=== PATIENT | female | born 1970 | race Caucasian/White ===

== ENCOUNTER → 2023-05-30 10:10 | Outpatient (BNVA) | payer BC, MEDICAID, SELFPAY | PROVIDERS: Visit Provider Orthopaedic Surgery | DX: Z96.82 Presence of neurostimulator; Z98.1 Arthrodesis status; M54.50 Low back pain, unspecified; G89.29 Other chronic pain | CPT/HCPCS: 72040; 72070; 72100 ==

== ENCOUNTER 2023-09-05 08:40 | Outpatient (CLI) | payer BC, MEDICAID, SELFPAY ==
--- NOTE | 2023-09-05 08:46 | CT_ITS ---
WS: [id number] CT MYELOGRAM LUMBAR SPINE HISTORY: M54.9 - Dorsalgia, unspecified TECHNIQUE: Contiguous 2.5 mm axial imaging performed from T12 through the mid sacral level. Bone and soft tissue windows reviewed. Sagittal and coronal reformats are submitted and reviewed. DLP: 1251.[address] scans at [facility] use at least one of these dose optimization techniques: automated e xposure control; mA and/or kV adjustment per patient size (includes targeted exams where dose is matc hed to clinical indication); or iterative reconstruction. COMPARISON: None available. Good contrast opacification of the subarachnoid space of the lumbar spine. Disc spaces are well-maint ained with mild desiccation at L5-S1. Osteophytic ridging around the vertebral bodies of the lumbar s pine. L1-L2: Negative. L2-L3: Very mild annular disc bulging. Shallow LEFT foraminal disc protrusion but no stenosis. L3-L4: Mild diffuse annular disc bulging without a focal protrusion. Mild facet and ligamentum flavum hypertrophy. There is mild central stenosis. L4-L5: Mild annular disc bulging with disc slightly contacting the traversing L5 nerve roots but no d isplacement. Mild facet joint arthritis. No high-grade stenosis. L5-S1: Moderate osteophytic ridging with annular disc bulging. Central disc protrusion. There is very slight disc contact on the S1 nerve roots but no displacement. Mild central and bilateral foraminal stenosis. Slightly greater osteophyte encroachment into the RIGHT foramen. SI joint screw fixation. Patient also has a dorsal column stimulator over the RIGHT lumbar region. IMPRESSION: 1. L3-4: Mild central stenosis. Mild facet arthritis. 2. L4-5: Annular disc bulging contacts the traversing L5 nerve roots with no displacement. No high-g rade stenosis. 3. L5-S1: Shallow central disc protrusion with slight disc contact on the S1 nerve roots encroaching into the subarticular recesses. Mild central and bilateral foraminal stenosis, RIGHT greater than LE FT. 4. Very shallow LEFT foraminal disc protrusion at L2-3.
--- NOTE | 2023-09-05 09:15 | IR_ITS ---
WS: [id number] LUMBAR MYELOGRAM HISTORY: M54.9 - Dorsalgia, unspecified COMPARISON: None available. FLUOROSCOPY TIME: 2min [id number] # of spot films: 7 Procedure, risks and complications were explained to the patient. Risks including bleeding, infection , headaches, allergic reaction and seizures. Consent has been obtained. With the patient in prone position the skin over the lumbar region is cleansed with ChloraPrep and an esthetized with lidocaine. 22-gauge spinal needle is inserted into the thecal sac at the appropriate level determined by fluoroscopy. Omnipaque 240; 12 ml is injected slowly under fluoroscopy with no co mplications. Needle bevel is perpendicular to the longitudinal fibers of the dura. Stylet is reinsert ed prior to removal of the needle. Patient tolerated the procedure well. Patient will proceed to CT f or further evaluation. Good opacification subarachnoid space of the lumbar spine. No high-grade stenosis is identified. Ther e is mild narrowing of the canal at L5-S1. No significant mass effect upon the cord. Postsurgical serjio dware across the SI joints. Patient also has a dorsal column stimulator. IMPRESSION: Uncomplicated lumbar myelogram. Patient to proceed to CT.
== END 2023-09-05 08:41 | disposition home or self-care (01) ==
LOC: RAD 08:41
PROVIDERS: Visit Provider Orthopaedic Surgery
DX: M54.9 Dorsalgia, unspecified (principal)
CPT/HCPCS: 62304; 72132; Q9966

== ENCOUNTER → 2023-10-01 14:50 | Outpatient (BNVA) | payer BC, MEDICAID, SELFPAY | PROVIDERS: Visit Provider Orthopaedic Surgery | DX: M54.9 Dorsalgia, unspecified (principal); M79.642 Pain in left hand; M48.062 Spinal stenosis, lumbar region with neurogenic claudication; Z79.899 Other long term (current) drug therapy | CPT/HCPCS: 36415; 80053; 81001; 85025 ==

== ENCOUNTER → 2023-10-14 12:57 | Outpatient (BNVA) | payer BC, MEDICAID, SELFPAY | PROVIDERS: Visit Provider Family Medicine | DX: Z01.818 Encounter for other preprocedural examination (principal); Z79.899 Other long term (current) drug therapy | CPT/HCPCS: 81003 ==

== ENCOUNTER → 2023-11-26 14:42 | Outpatient (BNVA) | payer BC, MEDICAID, SELFPAY | PROVIDERS: Referring Provider Orthopaedic Surgery; Visit Provider Student in an Organized Health Care Education/Training Program | DX: M79.642 Pain in left hand (principal); M65.332 Trigger finger, left middle finger | CPT/HCPCS: 73130 ==

== ENCOUNTER → 2023-12-26 11:08 | Outpatient (BNVA) | payer BC, MEDICAID, SELFPAY | PROVIDERS: Visit Provider Orthopaedic Surgery | DX: M48.062 Spinal stenosis, lumbar region with neurogenic claudication (principal) | CPT/HCPCS: 72070; 72110 ==

== ENCOUNTER 2024-01-01 08:08 | Day surgery (SDC) | payer BC, MEDICAID, SELFPAY ==
[2024-01-01] VITALS (8 sets, daily range): BP systolic 135–165; BP diastolic 76–92; PULSE 69–75; RESP 18–20; TEMP 36.3–36.4; O2SAT 96–98
[2024-01-01] MEDS: methadone 10 mg Tablet PO (09:21)
[2024-01-01] MEDS: scopolamine 1.5 Patch 1 PATCH TRANSDERMA (09:25)
--- NOTE | 2024-01-01 09:33 | P.ANESASSM_ITS ---
Pre-Anesthetic Assessment Height/Weight: Height 1.7 m Weight 2.466 kg Temp Pulse Resp BP Pulse Ox O2 Del Method 97.5 F L 69 18 135/92 96 Room Air 01/01/24 08:32 01/01/24 08:32 01/01/24 08:32 01/01/24 09:25 01/01/24 08:32 01/01/24 08:39 Operation Date: 01/01/24 09:55 Proposed Procedures p Left middle finger trigger release(Left) - Pierre Acevedo DO Familial anesthetic complications: It's take a lot of anesthesia to get me to sleep Was Beta Joseluis taken within 24 hours: N/A Was Clonidine taken within 24 hours: N/A Last intake: Intake Last Liquid Date 12/31/23 Last Liquid Time 18:00 Last Solid Date 12/31/23 Last Solid Time 18:00 Social No alcohol and No tobacco Exam alert, oriented x 3, clear to auscultation bilaterally and regular rate & rhythm Airway Mallampati: Class I Dentition: full Metabolic Thyroid Disease (graves disease) Anesthetic Plan ASA status: 2 Anesthesia: MAC Risk of > 500 ml blood loss (7ml/kg in children): No Medications/Allergies Home Medications Medication Instructions Recorded Confirmed Last Taken Type methimazole 5 mg tablet 2.5 mg PO EVERY OTHER DAY 05/30/23 12/31/23 12/30/23 History oxycodone 10 mg tablet 10 mg PO TID PRN Pain 05/30/23 12/31/23 12/31/23 History propranolol 160 mg capsule,24 160 mg PO DAILY 05/30/23 12/31/23 01/01/24 History hr,extended release doxylamine succinate 25 mg tablet 75 mg PO .qhs PRN Insomnia 10/14/23 12/31/23 12/31/23 History (Unisom (doxylamine)) Bone Growth Stimulator #1 ea 11/15/23 12/26/23 Unknown Rx Allergies Allergy/AdvReac Type Severity Reaction Status Date / Time vancomycin Allergy Severe ADR-Chest Verified 12/31/23 16:11 Pain bacitracin Allergy swelling Verified 12/31/23 16:11 [From Neosporin ([id number])] doxycycline Allergy hives, Verified 12/31/23 16:11 itching, throat swelling gabapentin Allergy throat Verified 12/31/23 16:11 swelling meperidine [From Demerol] Allergy throat Verified 12/31/23 16:11 swelling morphine Allergy throat Verified 12/31/23 16:11 swelling neomycin Allergy swelling Verified 12/31/23 16:11 [From Neosporin ([id number])] polymyxin B Allergy swelling Verified 12/31/23 16:11 [From Neosporin ([id number])] adhesives Allergy rash Uncoded 12/31/23 16:11 [facility] Anesthesia Social History Smoking and tobacco/nicotine status: never used tobacco/nicotine Data Anesthesia Cardiac Studies: No Data to Display
[2024-01-01] MEDS: ketorolac 30 mg/mL INJ IVP (09:40)
[2024-01-01] MEDS: acetaminophen 1,000 MG/100 ML PIGGYBACK 400 MG IV (09:47)
[2024-01-01] MEDS: midazolam 1 mg/mL INJ 2 mL 2 MG IVP (09:59)
[2024-01-01] MEDS: sodium chloride 0.9% 1,000 ML 30 ML IV (09:59)
--- NOTE | 2024-01-01 10:02 | W.PM.OPSFHP ---
Same Day Surgery H&P Indication for Procedure/HPI DATE OF PROCEDURE: January 01, 2024 CHIEF COMPLAINT/INDICATIONFOR SURGICAL PROCEDURE: Left middle finger trigger PREOP DIAGNOSIS: Left middle finger trigger PLANNED PROCEDURE: Operation Date: 01/01/24 09:55 Proposed Procedures p Left middle finger trigger release(Left) - Pierre Acevedo, Medications/Allergies* Home Medications Medication Instructions Recorded Confirmed Type methimazole 5 mg tablet 2.5 mg PO EVERY OTHER DAY 05/30/23 12/31/23 History oxycodone 10 mg tablet 10 mg PO TID PRN Pain 05/30/23 12/31/23 History propranolol 160 mg capsule,24 160 mg PO DAILY 05/30/23 12/31/23 History hr,extended release doxylamine succinate 25 mg tablet 75 mg PO .qhs PRN Insomnia 10/14/23 12/31/23 History (Unisom (doxylamine)) Allergies/Adverse Reactions Allergy/AdvReac Type Severity Reaction Status Date / Time vancomycin Allergy Severe ADR-Chest Verified 12/31/23 16:11 Pain bacitracin Allergy swelling Verified 12/31/23 16:11 [From Neosporin ([id number])] doxycycline Allergy hives, Verified 12/31/23 16:11 itching, throat swelling gabapentin Allergy throat Verified 12/31/23 16:11 swelling meperidine [From Demerol] Allergy throat Verified 12/31/23 16:11 swelling morphine Allergy throat Verified 12/31/23 16:11 swelling neomycin Allergy swelling Verified 12/31/23 16:11 [From Neosporin ([id number]-mel-[id number])] polymyxin B Allergy swelling Verified 12/31/23 16:11 [From Neosporin (kcw-dog-unwos)] adhesives Allergy rash Uncoded 12/31/23 16:11 Current Medications: Generic Name Dose Route Start Last Admin Trade Name Freq PRN Reason Stop Dose Admin Sodium Chloride 1,000 mls @ 30 mls/hr 01/01/24 08:30 01/01/24 09:59 Sodium Chloride 0.9% IV 01/02/24 08:29 30 mls/hr .Q24H MEET Administration Midazolam HCl 2 mg 01/01/24 08:17 01/01/24 09:59 Midazolam 1 Mg/Ml Inj 2 Ml IVP 2 mg ONCE PRN Administration Preop Anxiety Pertinent History/Comorbid Conditions* Social History Smoking and tobacco/nicotine status: never used tobacco/nicotine Pertinent Exam Findings alert, oriented x 3, operative site marked and procedure specific exam findings Please refer to detailed orthopedic examination on 11/26/2023: Left hand There is full range of motion of the wrist with full flexion, extension, supination and pronation. decreased ablitiy to make a fist, flexor tendons intact. A negative median nerve compression test, negative Finklestein's test are demonstrated. There is tenderness directly over the A1 lyubov of the left middle finger. There is palpable swelling noted with flexion and extension of the digit over the A1 lyubov. mechanical triggering noted. Recommendations Surgery/Procedure today Other Plans: Patient understands the ins and outs procedure risk benefits complication alternatives of surgery and through shared decision making patient elects proceed with surgical intervention for left middle finger trigger release. All questions answered at this time. Coding Level of Care Code Acute Code for Chg Fwd
[2024-01-01] MEDS: ceFAZolin 2,000 MG in sodium chloride 0.9% (plus) 50 ML 100 MG IV (10:39)
[2024-01-01] MEDS: ROPivacaine 0.5% SDV 30 mL 150 MG INJECTION (10:52)
[2024-01-01] MEDS: lidocaine 1% INJ 10 mL (per mL) XX (10:52)
--- NOTE | 2024-01-01 11:10 | P.BOP_ITS ---
Date of Procedure: [01/01/2024] Surgeon: Pierre Acevedo DO Optical Instrument Specialist(s): None Procedure(s) performed: Left middle finger trigger release Findings of the procedure(s): Patient found to have left middle finger trigger underwent procedure as planned without issues or complications was able to make a full fist as well as extend digit with no triggering noted. Estimated blood loss: 2 mL Specimen(s) removed: None Post-operative diagnosis: Left middle finger trigger
--- NOTE | 2024-01-01 11:11 | P.OP_ITS ---
Operative Report Date of procedure: January 01, 2024 Surgeon: Pierre Acevedo DO Procedure: Preoperative diagnosis: left middle finger trigger post-op diagnosis: Same Procedure done: Left?middle?finger?trigger?release Surgeon: Pierre Acevedo DO Estimated blood loss: 2cc Tourniquet time 5mins Complications: None Condition: stable Disposition: same day Brief History: Patient's been seen and worked up in the outpatient setting and findings consistent with preoperative diagnosis of Left?middle?finger?trigger.? Pt is failed conservative treatment.? Continues to have mechanical locking and catching.? Severe pain as well.? We talked about treatment options nonoperative versus operative intervention.? ?Patient understands the risk benefits complication alternatives of surgical nonsurgical treatment options.? Understanding risks with surgery pt elects proceed with surgical intervention.? Consent obtained in the office.? Here today to proceed with surgical intervention.? All questions answered. Procedure: Patient was seen and evaluated in the preoperative holding area.? Consent was reviewed and signed with patient.? Seen evaluated by Anesthesia Department.? Once cleared for surgery was brought back to the operative suite.? Placed in supine position on the OR table all bony prominences well-padded patient properly secured to the bed.? Patient's Left arm was then placed to the armboard.? A nonsterile tourniquet applied to the Left upper arm.? Patient's Left upper extremity was then prepped and draped in standard orthopedic fashion.? Final timeout performed.? Patient received appropriate preoperative antibiotics. Esmarch tourniquet was used exsanguinate the Left upper extremity tourniquet insufflated to 250 mmHg. Under sterile aseptic technique local digital block was performed to the Left?middle?finger.? Once appropriately anesthetized a standard oblique incision was made centering over the A1 lyubov following patient's flexor crease.? Sharp scalpel incision was made only through skin and then switched to Littler dissection scissors and spread longitudinally directly over the flexor tendon sheath.? I then mobilized both radially and ulnarly and Kasdan retractors were used and placed by my photographer's assistant to protect neurovascular bundle.? Next I visualized the A1 lyubov and this was incised with a scalpel.? I then switched to dissection scissors and released the A1 lyubov both proximally as well as distally to its entirety.? Significant tendon sheath fluid was noted consistent with inflammation.? Mild fraying of the flexor tendons noted but no tear.? At this point I utilized a rag nail and pulled the tendons FDS and FDP out of the incision and no?triggering was noted.? I then had anesthesia wake up the patient and patient was able to actively flex and extend with no?triggering.? This point thorough irrigation was performed.? Tourniquet deflated hemostasis satisfactory with bipolar.? I then subsequently closed the incision with interrupted nylon suture.? Xeroform 4 x 4's, Kerlix and an Georgi wrap was applied for a bulky soft dressing.? Patient was then subsequently awakened from anesthesia and taken to PACU in stable condition tolerated procedure without issues. Disposition: Patient taken back in stable condition recovering well.? Patient will receive appropriate discharge instruction as well as pain medication postoperatively.? Patient to follow-up with me in the office in 2 weeks for repeat evaluation and incision check.? Patient understands that any questions or concerns and contact the office.? All questions answered.
--- NOTE | 2024-01-01 12:25 | ANE.PACU2 ---
Inpatient post-anesthesia follow up: Airway intact: Yes Vital signs: Temperature 97.3 F Pulse Rate 70 Respiratory Rate 18 Blood Pressure 148/76 Pulse Oximetry 97 Oxygen Delivery Me thod Room Air Oxygen Flow Rate Fraction of Inspir ed Oxygen Hydration adequate: Yes Nausea and vomiting: No Pain level: 1 Mental status: Baseline
== END 2024-01-01 12:23 | disposition home or self-care (01) ==
PROVIDERS: Visit Provider Student in an Organized Health Care Education/Training Program
PROC: (CPT 26055; principal; 2024-01-01 09:45)
DX: M65.332 Trigger finger, left middle finger (principal)
CPT/HCPCS: 26055; J0131; J0690; J1885; J2250; J2704; J2795; J3010; J7030

== ENCOUNTER → 2024-01-28 09:50 | Outpatient (BNVA) | payer BC, MEDICAID, SELFPAY | PROVIDERS: Visit Provider Orthopaedic Surgery | DX: Z01.818 Encounter for other preprocedural examination (principal) | CPT/HCPCS: 36415; 80053; 81003; 81015; 85025 ==

== ENCOUNTER 2024-03-02 19:04 | Observation (INO) | payer MEDICAID, SELFPAY ==
[2024-03-02] VITALS (16 sets, daily range): BP systolic 88–134; BP diastolic 45–79; PULSE 55–73; RESP 14–20; TEMP 36.4–36.8; O2SAT 94–100; BMI 27.3
--- NOTE | 2024-03-02 12:57 | ANES.PREANE2 ---
Pre-Anesthetic Assessment Height/Weight: Height 1.7 m Weight 79.379 kg Temp Pulse Resp BP Pulse Ox O2 Del Method 97.9 F 67 18 134/79 100 Room Air 03/02/24 11:24 03/02/24 11:24 03/02/24 11:24 03/02/24 11:24 03/02/24 11:24 03/02/24 11:24 Preop Diagnosis: Lumbar stenosis with neurogenic claudication Operation Date: 03/02/24 12:50 Proposed Procedures p Spinal Fusion PSF(Not Applicable) - Adam Keane DO s Posterior Lumbar Interbody Fusion PLIF(Not Applicable) - Adam Keane DO s Spinal Cord Battery/Stimulator Removal(Not Applicable) - Adam eKane DO Familial anesthetic complications: None Was Beta Joseluis taken within 24 hours: N/A Was Clonidine taken within 24 hours: N/A Last intake: Intake Last Liquid Date 03/01/24 Last Liquid Time 03:30 Last Solid Date 03/01/24 Last Solid Time 21:00 Social No alcohol and No tobacco Exam alert, oriented x 3, clear to auscultation bilaterally and regular rate & rhythm Airway Mallampati: Class I Dentition: full Metabolic Thyroid Disease Anesthetic Plan ASA status: 2 Anesthesia: General Risk of > 500 ml blood loss (7ml/kg in children): No Medications/Allergies Home Medications Medication Instructions Recorded Confirmed Last Taken Type methimazole 5 mg tablet 2.5 mg PO EVERY OTHER DAY 05/30/23 02/28/24 02/28/24 History oxycodone 10 mg tablet 10 mg PO TID PRN Pain 05/30/23 02/28/24 12/31/23 History propranolol 160 mg capsule,24 160 mg PO DAILY 05/30/23 02/28/24 03/02/24 History hr,extended release Bone Growth Stimulator #1 ea 11/15/23 01/28/24 Unknown Rx Allergies Allergy/AdvReac Type Severity Reaction Status Date / Time vancomycin Allergy Severe ADR-Chest Verified 02/14/24 09:26 Pain bacitracin Allergy swelling Verified 02/14/24 09:26 [From Neosporin ([id number]-[id number])] doxycycline Allergy hives, Verified 02/14/24 09:26 itching, throat swelling gabapentin Allergy throat Verified 02/14/24 09:26 swelling meperidine [From Demerol] Allergy throat Verified 02/14/24 09:26 swelling morphine Allergy throat Verified 02/14/24 09:26 swelling neomycin Allergy swelling Verified 02/14/24 09:26 [From Neosporin ([id number])] polymyxin B Allergy swelling Verified 02/14/24 09:26 [From Neosporin ([id number]-dlt-dgorf)] adhesives Allergy rash Uncoded 02/14/24 09:26 [facility] Anesthesia Social History Smoking and tobacco/nicotine status: former use of tobacco/nicotine Data Anesthesia Blood Bank 03/02/24 11:45 Blood Type B Positive Rho(D) Type Rh positive Cardiac Studies: No Data to Display
--- NOTE | 2024-03-02 13:14 | W.PM.OPSUD ---
Surgery/Procedure H&P Update DATE OF PROCEDURE: March 02, 2024 DATE H&P PERFORMED: 02/14/24 H&P UPDATE INFORMATION: I have reviewed H&P completed within last 30 days, I have examined patient prior to procedure and No changes to prior documentation PREOP DIAGNOSIS: Lumbar stenosis with neurogenic claudication PLANNED PROCEDURE: Operation Date: 03/02/24 12:50 Proposed Procedures p Spinal Fusion PSF(Not Applicable) - Adam Keane DO s Posterior Lumbar Interbody Fusion PLIF(Not Applicable) - DO alfa Hicks Spinal Cord Battery/Stimulator Removal(Not Applicable) - Adam Keane DO
[2024-03-02] MEDS: sodium chloride 0.9% 1,000 ML 30 ML IV (14:18)
[2024-03-02] MEDS: ceFAZolin 2,000 mg SDV 2000 MG IVP ×2 (14:35→23:39)
[2024-03-02] MEDS: lidocaine-epi 1% PF 1:200,000 30 mL SDV INJECTION (15:20)
[2024-03-02] MEDS: heparin, porcine 1,000 unit/mL INJ 10 mL 10000 UNIT IRRIGATION (15:21)
--- NOTE | 2024-03-02 17:51 | XR_ITS ---
WS: [id number] C-ARM RADIOGRAPHS LUMBAR SPINE; 3 IMAGES HISTORY: OR PICS COMPARISON: None available. Very limited evaluation of the spine by this technique. There is extensive hardware. XR/XR lumbar spine 2-3V* [id number] IMPRESSION: Intraoperative imaging during lumbar fusion procedure.
--- NOTE | 2024-03-02 18:23 | P.OP_ITS ---
Operative Report Date of procedure: March 02, 2024 Surgeon: Adam Keane DO Procedure: 1. L5/S1 Interbody fusion wposterolateral fusion 2. L4/5 Interbody fusion with posterolateral fusion 3. Instrumentation L4-S1 4. Cage at L4/5 5. Cage L5/S1 6. L5-S1 laminectomy with facetectomy for purpose of decompressing nerve 7. L4-5 laminectomy with facetectomy for purpose of decompressing nerve 8. use of autograft from same incision 9. allograft 10. Bone marrow aspirate from right iliac crest 11. Use of computer navigation / stereotactic for spine 12. Removal of neurostimulator paddle 13. Removal of generator for neurostimulator Patient is brought to the operative suite. After undergoing anesthesia, the patient had neuro monitoring attached. Patient was then placed in the prone position on the Subhash table. All areas of impingement were well-padded. Patient was then prepped and draped in the normal sterile fashion. Skin incision made over the thoracic spine where the neurostimulator was placed. Subperiosteal dissection was made down to the level where the wires went underneath the lamina. Patient had a metal bar that was used to hold these wires in as well. The paddle was identified and scar tissue was broken off of it paddle was removed wires were cut and then pulled from underneath the bar that was in place bar will stay in place. Next attention was brought to the generator for the neurostimulator in the right flank. Skin incision was made the battery is identified removed and then all the wires were pulled out. In both the generator and the neurostimulator paddle were removed. Skin incision was then made from L4-S1. Subperiosteal dissection was made out to the transverse processes of L4 bilaterally, L5 bilaterally and S1 ala bilaterally. Attention was then brought to the OPHTHONIX bone marrow aspirate kit was used to aspirate bone marrow aspirate. This was done by using the sharp probe to open up the bone. Aspiration was performed and then the blunt probe was then used to dissect down to through the bone tunnel. An aspirating well drawn back a millimeter approximately 20 cc of bone marrow aspirate was used. Admixed with the allograft and autograft bone that will be used. Patient is brought to present to pins in the right iliac crest. These pins were removed at the end the case. This is where the fiducial was attached with computer navigation. The computer navigation was attached and the serial melani and spun on the patient information from the C-arm was then loaded the computer for the use of computer navigation for pedicle screws. The technique for placing the pedicle screws was to use a drill followed by the gearshift probe linked to computer navigation. Followed by the ball probe to feel the superior inferior medial lateral tran of the pedicles. Then placement of the screws using computer navigation. Was done at each pedicle. Screws were placed at L4 bilaterally, L5 bilaterally and S1 bilaterally. Next attention was brought to performing the laminectomy ofL5. This was done using the high-speed bur Kerrisons and curettes. Once the lamina was removed and then attention was brought to performing a partial facetectomy on the contralateral side. This was done again using the high-speed bur curettes and Kerrisons. The ligamentum flavum was taken down bilaterally from L5 to S1. Attention was then brought to the facet on the ipsilateral side. The facet was taken down. The S1 nerve was decompressed as it passed around the S1 pedicle. The laminectomy was done for purposes of decompressing the nerve as well as placement of the cage. The L5 nerve was identified as it traversed through the L5/S1 foramen. The thecal sac was identified and retracted. The L5/S1 disc base was identified. Using a knife the disc base was opened. And then sequential kayli were placed. The first shaver was a 6 and the last shaver was a 9. Using a pituitary and down going curette the endplates were scraped and disc material was removed from the space. Once adequate decompression of the disc base was felt to be had. Osteoamp sponge was packed into the anterior aspect of the disc base. Then a size 10 cage from [employer] was placed after packing osteoamp into the cage. While placing the cage the thecal sac and S1 nerve was protected. C arm was used to ensure that the cages placed in the appropriate position. Next attention was brought to performing the laminectomy ofL4. This was done using the high-speed bur Kerrisons and curettes. Once the lamina was removed and then attention was brought to performing a partial facetectomy on the contralateral side. This was done again using the high-speed bur curettes and Kerrisons. The ligamentum flavum was taken down bilaterally from L4 to L5. Attention was then brought to the facet on the ipsilateral side. The facet was taken down. The L5 nerve was decompressed as it passed around the L5 pedicle. The laminectomy was done for purposes of decompressing the nerve as well as placement of the cage. The L4 nerve was identified as it traversed through the L4/5 foramen. The thecal sac was identified and retracted. The L4/5 disc base was identified. Using a knife the disc base was opened. And then sequential kayli were placed. The first shaver was a 6 and the last shaver was a 10. Using a pituitary and down going curette the endplates were scraped and disc material was removed from the space. Once adequate decompression of the disc base was felt to be had. Osteoamp sponge was packed into the anterior aspect of the disc base. Then a size 11 cage from [employer] was placed after packing osteoamp into the cage. While placing the cage the thecal sac and L5 nerve was protected. C arm was used to ensure that the cages placed in the appropriate position. Attention was then brought to attaching the rods to the screws placed in the L 4 bilaterally, L5 bilaterally and S1 bilaterally. Caps were torqued into position. Locking the construct in place. Wound was copiously irrigated and then attention was brought to decorticating the facets and transverse processes laterally. Bone that was taken down from the lamina was used along with osteoamp fibers and sponges were packed into the lateral gutters along the facet joints. This was done bilaterally. Wound was then closed in a layered fashion starting with the thoracolumbar fascia. 0-vicryl was used the sub cutaneous tissue was closed with 2-0 vicryl and skin with 4-0 monocryl. Glue was then used to seal the skin and a steril dressing was applied. Patient was then placed in the supine position. The endotracheal tube was removed and patient was transferred to the PACU in stable condition.
[2024-03-02] MEDS: HYDROmorphone 1 mg/mL INJ 1 mL 0.5 MG IVP ×2 (18:39→21:14)
--- NOTE | 2024-03-02 19:20 | ANE.PACU2 ---
Inpatient post-anesthesia follow up: Airway intact: Yes Vital signs: Temperature 97.9 F Pulse Rate 71 Respiratory Rate 16 Blood Pressure 92/50 Pulse Oximetry 97 Oxygen Delivery Me thod Room Air Oxygen Flow Rate Fraction of Inspir ed Oxygen Hydration adequate: Yes Nausea and vomiting: No Pain level: 1 Mental status: Baseline
--- NOTE | 2024-03-02 19:59 | PC.NURSE ---
Surgery nurse reported to me that patient was requesting Ketamine drip, stating that she has received it at another hospital for her pain control. Patient tearful, stating that she is in pain upon coming to her room from surgery. This nurse came out to the computer at the nurse's station to look at patient's orders. comes up and states we are going to have to do something about her pain, because this isn't like her. requests that I call [facility] because her and Dr. Keane had something worked out for her pain control. Dr. Keane notified of 's request. Dr. Keane stated on telephone that the patient normal takes 10 mg Oxy q8 hours PRN at home and that we will be giving her 1-2 tabs every [address] Keane ordered to increase PRN Dilaudid dose from 0.2 mg to 0.[address]. [address] Keane if he would like to be contacted or if he would like me to call the on-call surgeon if any further pain control issues arise. Dr. Keane stated If we give her anything more than that, she could stop breathing. and patient updated at bedside of plan for pain control and verbalized understanding.
[2024-03-02] MEDS: oxyCODONE-APAP 10-325 mg Tablet PO (20:12)
[2024-03-02 20:48] LABS: Glucose Point of Care 151 mg/dL (70-110)
[2024-03-02] MEDS: lactated ringers 1,000 ML 90 ML IV (21:14)
--- NOTE | 2024-03-02 21:55 | PC.NURSE ---
Patient has been repositioned 3 times since her arrival on the floor from surgery. Patient states I have a melani in my back and have to be repositioned every 30 minutes. Not kidding.
[2024-03-03] VITALS (14 sets, daily range): BP systolic 90–109; BP diastolic 50–74; PULSE 65–88; RESP 16–18; TEMP 36.4–36.9; O2SAT 94–98
[2024-03-03] MEDS: ketorolac 30 mg/mL INJ IVP ×4 (00:56→22:59)
[2024-03-03] MEDS: HYDROmorphone 1 mg/mL INJ 1 mL 0.5 MG IVP ×2 (00:56→04:57)
[2024-03-03] MEDS: oxyCODONE-APAP 10-325 mg Tablet PO ×2 (04:03)
[2024-03-03] MEDS: ceFAZolin 2,000 mg SDV 2000 MG IVP ×2 (04:58→15:44)
[2024-03-03 05:29] LABS: Hematocrit 27.5 % (36-47)
[2024-03-03] MEDS: lactated ringers 1,000 ML 90 ML IV (08:54)
[2024-03-03] MEDS: methIMAzole 5 MG Tablet 2.5 MG PO (08:58)
[2024-03-03] MEDS: docusate sodium 100 mg Capsule PO ×2 (09:00→17:04)
--- NOTE | 2024-03-03 09:25 | PC.CHAP ---
Pastoral Care Encounter/Spiritual Assessment Type of Contact [] Declined handwriting expert visit [] Patient/Family/Request visit [] Outpatient visit [] Follow-up visit [] Physician referral [] Code/Alert [x] Routine visit [] Staff referral [] Actively dying [] Patient sleeping [x] Family support [] [] Out of room [] Palliative care [] [] Receiving care in room [] Pre-surgical visit [] Trauma [] Long length of stay [] ICU visit [] Other: Relational/Emotional Strength [x] Patient feels connected with others/family/visitors/staff [] Distress [] Loneliness/isolation [] Abandonment Spirituality of Patient x[] Person of Skye [] Attends Orthodox of their [place] [x] Believes in Prayer [] Reads Bible or Anglican materials [] There are Spiritual issues to be addressed Gerontological Nurse Practitioner Interventions [x] Prayer [x] Active listening [] Non-anxious presence [x] Spiritual/emotional support [] Crisis/trauma care [] Spiritual counseling [] Bereavement support [] Provided bereavement packet [] Provided Bible/devotional materials [] Provided toy/stuffed animal, coloring book to patient or family member [] Provided Communion [] Anointing/[place] [] Salvation [x] Completed spiritual assessment [] Other: Impact on Illness or Injury [] Angry [] Fearful [] Anxious [] Often cries [] Exhaustion [] Unable to work [] Unable to attend yazidi [] Unable to walk/stand [] Unable to read [] Unable to drive [] Unable to eat/drink [] Unable to sleep [] Unable to be with family [] Patient intubated [] Other: Summary Time spent with patient 5 min
--- NOTE | 2024-03-03 09:47 | P.PN_ITS ---
Subjective 2 Subjective: Patient pain is relatively controlled at this time however blood pressure was consistently mid 90s over 60s. Patient is concerned about getting her pain meds with her blood pressure being low. Vitals/I&O/Wt Last Vital Signs Temp 97.9 F 03/03/24 08:00 Pulse 71 03/03/24 08:00 Resp 16 03/03/24 08:00 BP 94/62 03/03/24 08:41 Pulse Ox 97 03/03/24 08:00 O2 Del Method Room Air 03/03/24 08:00 03/02/24 03/03/24 03/03/24 22:59 06:59 14:59 Intake Total 300 / 1300 240 / 1540 1000 / 1000 Output Total 550 / 550 780 / 1330 Balance -250 / 750 -540 / 210 1000 / 1000 Weight last 48 hrs Weight 216 lb 4.8 oz Weight 209 lb Weight 175 lb Physical Exam 2 Narrative: BiPAP strength bilateral lower extremities. Patient appeared appears to be comfortable in bed Urinary Catheter Management: Hill: Cath Placed During This Visit: yes Reason for Continuing Indwelling Catheter: Perioperative Use in Selected Surgeries Urinary Catheter Date of Insertion: 03/02/24 Urinary Catheter Time of Insertion: 14:34 Data 03/03/24 05:15 A&P Assessment and plan (1) Status post lumbar spinal fusion: Postop day 1 L4-S1 posterior lumbar interbody fusions as well as neurostimulator removal. Will get hospice involved to help with blood pressure issues. Attestations 2 Medical Necessity Statement*: Pain control Coding Level of Care Code Acute Code for Chg Fwd Diagnoses Status post lumbar spinal fusion Z98.1
[2024-03-03] MEDS: sodium chloride 0.9% 250 ML IV (10:18)
[2024-03-03] MEDS: oxyCODONE 5 mg IR Tab/Cap 20 MG PO ×3 (10:18→19:47)
--- NOTE | 2024-03-03 10:44 | P.CONIM_ITS ---
Documented by User: GAIL Hensley STDPAULINE 03/03/24 12:09 Providers/Reason For Consult 2 Attending Physician: Adam Keane DO History of Present Illness History of Present Illness Kaity Kendrick is a 53 year old female with PMH of Graves disease, chronic back pain, and GERD, is status post-op lumbar spinal fusion with neurostimulator removal being admitted due to low BP. Patient has not received any pain medications for 6 hours due to possibly effects on low BP. Patient endorses low back pain secondary to post-op status on a scale of 8/10. Patient also states LE edema. Patient has been anxious regarding the surgery and about her pain management. Patient denies dizziness, chest pain, SOB, Abdominal pain, n/v, headache, vision changes, numbness or tingling. Patient will be given IV Fluids and oxycodone. Review of Systems 2 General: Reports: Other (Negative unless stated above) Medications/Allergies Home Medications Medication Instructions Recorded Confirmed Last Taken Type methimazole 5 mg tablet 2.5 mg PO EVERY OTHER DAY 05/30/23 02/28/24 02/28/24 History oxycodone 10 mg tablet 10 mg PO TID PRN Pain 05/30/23 02/28/24 12/31/23 History propranolol 160 mg capsule,24 160 mg PO DAILY 05/30/23 02/28/24 03/02/24 History hr,extended release Bone Growth Stimulator #1 ea 11/15/23 03/03/24 Unknown Rx diphenhydramine HCl 50 mg capsule See Rx Instructions .Route 03/02/24 03/02/24 Unknown History (Unisom SleepGels) .COMPLEX PRN Sleep sucralfate 1 gram tablet 1 g PO BID PRN Heartburn 03/02/24 03/02/24 Unknown History Allergies Allergy/AdvReac Type Severity Reaction Status Date / Time vancomycin Allergy Severe ADR-Chest Verified 03/02/24 21:31 Pain bacitracin Allergy swelling Verified 03/02/24 21:31 [From Neosporin ([id number])] doxycycline Allergy hives, Verified 03/02/24 21:31 itching, throat swelling gabapentin Allergy throat Verified 03/02/24 21:31 swelling meperidine [From Demerol] Allergy throat Verified 03/02/24 21:31 swelling morphine Allergy throat Verified 03/02/24 21:31 swelling neomycin Allergy swelling Verified 03/02/24 21:31 [From Neosporin ([id number])] polymyxin B Allergy swelling Verified 03/02/24 21:31 [From Neosporin ([id number])] adhesives Allergy rash Uncoded 03/02/24 21:31 Current Medications Generic Name Dose Route Start Last Admin Trade Name Freq PRN Reason Stop Dose Admin Cefazolin Sodium 2,000 mg 03/02/24 22:30 03/03/24 04:58 Cefazolin 2,000 Mg Sdv IVP 03/03/24 14:31 2,000 mg Q8H MEET Administration Protocol Docusate Sodium 100 mg 03/03/24 09:00 03/03/24 09:00 Docusate Sodium 100 Mg Capsule PO 100 mg BID MEET Administration Hydromorphone HCl 0.5 mg 03/02/24 20:08 03/03/24 04:57 Hydromorphone 1 Mg/Ml Inj 1 Ml IVP 0.5 mg Q1H PRN Administration pain Lactated Ringer's 1,000 mls @ 90 mls/hr 03/02/24 18:15 03/03/24 08:54 Lactated Ringers IV 90 mls/hr .[id number] MEET Administration Sodium Chloride 250 mls @ 250 mls/hr 03/03/24 10:05 03/03/24 10:18 Sodium Chloride 0.9% IV 03/03/24 11:04 250 mls/hr ONCE ONE Administration Ketorolac Tromethamine 30 mg 03/02/24 18:15 03/03/24 07:32 Ketorolac 30 Mg/Ml Inj IVP 30 mg Q6H PRN Administration BREAKTHROUGH PAIN Methimazole 2.5 mg 03/03/24 09:00 03/03/24 08:58 Methimazole 5 Mg Tablet PO 2.5 mg EVERY OTHER DAY MEET Administration Oxycodone HCl 20 mg 03/03/24 10:07 03/03/24 10:18 Oxycodone 5 Mg Ir Tab/Cap PO 20 mg Q4H PRN Administration SEVERE PAIN PFSH Acute 2 PFSH: Medical History GERD (gastroesophageal reflux disease) Chronic back pain Hyperthyroidism Surgical History History of neck surgery History of back surgery History of hand surgery History of shoulder surgery History of total abdominal hysterectomy and bilateral salpingo-oophorectomy Family History Mother Stroke Head and neck cancer stage 4 brain tumor Diabetes Pre-diabetes Father Muscular dystrophy Social History Smoking and tobacco/nicotine status: former use of tobacco/nicotine Quit status (tobacco/nicotine): has quit using Former quit date comment: Stopped in 2018 or 2019 Alcohol intake: current Alcohol intake frequency: other Alcohol type: wine Alcohol use comment: Occasional alcohol use, last drink was a glass of wine two weeks ago Vitals/I&O/Wt Last Vital Signs Temp 97.9 F 03/03/24 08:00 Pulse 71 03/03/24 08:00 Resp 18 03/03/24 10:18 BP 94/62 03/03/24 08:41 Pulse Ox 97 03/03/24 08:00 O2 Del Method Room Air 03/03/24 08:00 03/02/24 03/03/24 03/03/24 22:59 06:59 14:59 Intake Total 300 / 1300 240 / 1540 1000 / 1000 Output Total 550 / 550 780 / 1330 Balance -250 / 750 -540 / 210 1000 / 1000 Weight last 48 hrs Weight 216 lb 4.8 oz Weight 209 lb Weight 175 lb Physical Exam 2 Narrative: Patient is in pain Neck/C-Spine: OTHER: Supple Resp: OTHER: Bilateral breath sounds, clear to auscultation, normal chest wall expansion Cardio: OTHER: Normal rate and rhythm with 2/6 grade systolic murmur. GI: OTHER: soft, nondistended, nontender with normal bowel sounds Back/Pelvis: OTHER: Bandage on lower back covering incision site. Extremity: OTHER: No edema or cyanosis. Urinary Catheter Management: Hill: Cath Placed During This Visit: yes Reason for Continuing Indwelling Catheter: Perioperative Use in Selected Surgeries Urinary Catheter Date of Insertion: 03/02/24 Urinary Catheter Time of Insertion: 14:34 Data 03/03/24 05:15 A&P Assessment and plan (1) Status post lumbar spinal fusion: Post-op day #1 of lumbar spinal fusion with neurostimulator removal Start Oxycodone q4hrs for pain management Start Ativan for anxiety Docusate for bowel regimen Continue post-op Abx cefazolin, max 3 times Hbg today was 8.7, likely post-op anemia. Monitor for post-op blood loss Use incentive spirometer Continue Zofran for nausea CBC and CMP tomorrow (2) Chronic back pain: Refer to above (3) Low BP: Patient on maintenance fluids LR 90ml/hr Start patient on 250 cc fluid bolus (4) Hyperthyroidism: Continue methimazole for Graves Hold propanolol due to low BP (5) Heartburn: Continue sucralfate PRN Plan Full code DVT PPX recommended Coding Level of Care Code 56653 Diagnoses Status post lumbar spinal fusion Z98.1 Chronic back pain M54.9; G89.29 Low BP I95.9 Hyperthyroidism E05.90 Heartburn R12 Time Spent (min) 54 Documented by User: Abelino Marin MD 03/03/24 12:11 Providers/Reason For Consult 2 Consulting Physician/Specialty*: Abelino Marin MD, hospitalist Reason for Consult*: Medical management, low blood pressure Requesting Physician: Dr. Keane History of Present Illness History of Present Illness Kaity Kendrick is a 53 year old female with PMH of Graves disease, chronic back pain, and GERD, is status post-op lumbar spinal fusion with neurostimulator removal being admitted due to low BP. Patient has not received any pain medications for 6 hours due to possibly effects on low BP. Patient endorses low back pain secondary to post-op status on a scale of 8/10. Patient also states LE edema. Patient has been anxious regarding the surgery and about her pain management. Patient denies dizziness, chest pain, SOB, Abdominal pain, n/v, headache, vision changes, numbness or tingling. Discussed with patient her low blood pressure. She states normally it runs normal at home. She does not feel dizzy currently. She does feel somewhat anxious as well. She is in some pain, and requesting she have some treatment for this. She and her reports she is fairly tolerant of pain medication, as she has been on it for quite a while. Patient will be given IV Fluids and oxycodone. Medications/Allergies Home Medications Medication Instructions Recorded Confirmed Last Taken Type methimazole 5 mg tablet 2.5 mg PO EVERY OTHER DAY 05/30/23 02/28/24 02/28/24 History oxycodone 10 mg tablet 10 mg PO TID PRN Pain 05/30/23 02/28/24 12/31/23 History propranolol 160 mg capsule,24 160 mg PO DAILY 05/30/23 02/28/24 03/02/24 History hr,extended release Bone Growth Stimulator #1 ea 11/15/23 03/03/24 Unknown Rx diphenhydramine HCl 50 mg capsule See Rx Instructions .Route 03/02/24 03/02/24 Unknown History (Unisom SleepGels) .COMPLEX PRN Sleep sucralfate 1 gram tablet 1 g PO BID PRN Heartburn 03/02/24 03/02/24 Unknown History Allergies Allergy/AdvReac Type Severity Reaction Status Date / Time vancomycin Allergy Severe ADR-Chest Verified 03/02/24 21:31 Pain bacitracin Allergy swelling Verified 03/02/24 21:31 [From Neosporin ([id number])] doxycycline Allergy hives, Verified 03/02/24 21:31 itching, throat swelling gabapentin Allergy throat Verified 03/02/24 21:31 swelling meperidine [From Demerol] Allergy throat Verified 03/02/24 21:31 swelling morphine Allergy throat Verified 03/02/24 21:31 swelling neomycin Allergy swelling Verified 03/02/24 21:31 [From Neosporin ([id number])] polymyxin B Allergy swelling Verified 03/02/24 21:31 [From Neosporin ([id number])] adhesives Allergy rash Uncoded 03/02/24 21:31 PFSH Acute 2 PFSH: Medical History GERD (gastroesophageal reflux disease) Chronic back pain Hyperthyroidism Surgical History History of neck surgery History of back surgery History of hand surgery History of shoulder surgery History of total abdominal hysterectomy and bilateral salpingo-oophorectomy Family History Mother Stroke Head and neck cancer stage 4 brain tumor Diabetes Pre-diabetes Father Muscular dystrophy Social History Smoking and tobacco/nicotine status: former use of tobacco/nicotine Quit status (tobacco/nicotine): has quit using Former quit date comment: Stopped in 2018 or 2018 Alcohol intake: current Alcohol intake frequency: other Alcohol type: wine Alcohol use comment: Occasional alcohol use, last drink was a glass of wine two weeks ago Physical Exam 2 Extremity: OTHER: No edema or cyanosis. No foot drop. Urinary Catheter Management: Hill: Cath Placed During This Visit: yes Data 03/03/24 05:15 A&P Assessment and plan (1) Status post lumbar spinal fusion: Post-op day #1 of lumbar spinal fusion with neurostimulator removal Start Oxycodone q4hrs for pain management. 20 mg every 4 hours Start Ativan for anxiety. 0.25 mg every 8 hours as needed Docusate for bowel regimen Continue post-op Abx cefazolin, per surgery instructions Hbg today was 8.7, likely post-op anemia. Monitor for post-op blood loss. Repeat CBC tomorrow along with BMP Use incentive spirometer Continue Zofran for nausea CBC and CMP tomorrow (2) Chronic back pain: (3) Low BP: Start patient on 250 cc fluid bolus Increase maintenance IV fluids to 125 cc an hour. (4) Hyperthyroidism: Continue methimazole for Graves Hold propanolol due to low BP . Reevaluate tomorrow. (5) Heartburn: Plan Full code DVT PPX recommended. Will notify surgery for their recommendation. Thank you for this consultation. Consult Attestations 2 Medical Necessity Statement: As per primary Diagnoses Status post lumbar spinal fusion Z98.1 Chronic back pain M54.9; G89.29 Low BP I95.9 Hyperthyroidism E05.90 Heartburn R12 Time Spent (min) 54
[2024-03-03] MEDS: lactated ringers 1,000 ML 125 ML IV (19:42)
[2024-03-03] MEDS: LORazepam 0.5 mg Tablet 0.25 MG PO (19:48)
[2024-03-04] VITALS (10 sets, daily range): BP systolic 101–126; BP diastolic 55–71; PULSE 72–85; RESP 16–22; TEMP 36.6–36.9; O2SAT 95–99
--- NOTE | 2024-03-04 00:50 | PC.NURSE ---
At 2300 this nurse went to administer PRN ketoralac as ordered at the patient's request. The patient rated her pain a 7/10 on the numerical pain scale. This nurse explained she would be back at midnight when her prn oxycodone IR was available to reassess her pain and administer oxycodone if needed. Reassessed at 0045 and patient and were both resting with eyes closed, even respirations, and no signs of distress.
[2024-03-04] MEDS: oxyCODONE 5 mg IR Tab/Cap 20 MG PO ×5 (02:53→21:39)
[2024-03-04] MEDS: lactated ringers 1,000 ML 125 ML IV (02:55)
[2024-03-04 05:52] LABS: Basophils # 0.1 10^3/uL (0.0-0.1); Basophils % 0.6 %; Eosinophils % 0.4 %; Hematocrit 23.5 % (36-47); Lymphocytes # 1.8 10^3/uL (0.8-4.8); Lymphocytes % 21.8 %; Mean Corpuscular HGB Conc 31.1 g/dL (30-55); Mean Corpuscular Hemoglobin 28.9 pg (27-33); Mean Corpuscular Volume 92.9 fl (85-98); Mean Platelet Volume 11.1 fL (7.4-10.4); Monocytes # 0.6 10^3/uL (0.2-0.9); Monocytes % 6.9 %; Neutrophils # 5.91 10^3/uL (1.8-7.7); Neutrophils % 69.8 %; Nucleated Red Blood Cells % 0 %; Platelet Count 156 10^3/cmm (157-399); Red Blood Count 2.53 10^6/uL (3.85-5.65); Red Cell Distribution Width 13.2 % (12.1-15.1); White Blood Count 8.45 10^3/uL (3.29-11.43)
[2024-03-04 06:12] LABS: Alanine Aminotransferase 11 U/L (0-33); Alkaline Phosphatase 64 U/L (35-105); Anion Gap 12.6 (5-19); Aspartate Amino Transferase 16 U/L (0-32); Blood Urea Nitrogen 9 mg/dL (6-20); Calcium 7.7 mg/dL (8.5-10.5); Carbon Dioxide 24 mmol/L (22-29); Chloride 110 mmol/L (98-107); Creatinine Clr Calc Pharmacy 152.8979; Globulin 1.9 g/dL (1.3-4.6); Glomerular Filtration Rate 128.1 mL/min (90-130); Glucose 95 mg/dL (65-115); Osmolality Calculated 294 mOsm/kg (285-295); Potassium 3.6 mmol/L (3.5-5.1); Sodium 143 mmol/L (136-145); Total Bilirubin 0.2 mg/dL (0.15-1.2); Total Protein 4.9 g/dL (6.6-8.7)
--- NOTE | 2024-03-04 06:13 | PC.NURSE ---
Patient complaining of pain, received PRN oxy IR at 0253. Notified Dr. Nice via [facility] of patient's request for more pain medication at 0608.
--- NOTE | 2024-03-04 06:43 | PC.NURSE ---
Received order for additional one time dose of toradol 30mg IVP. Patient's followed this nurse down the [facility] asking about pain medication and stated You're behind on her meds, aren't they scheduled for now? This nurse provided education on PRNs being available when asked for and not scheduled, that oxy IR was not available yet since she had a dose at 0253, and that a one time order had been received but was awaiting verification from pharmacy before it would be able to be administered.
[2024-03-04] MEDS: ketorolac 30 mg/mL INJ IVP (07:27)
--- NOTE | 2024-03-04 07:35 | PC.NURSE ---
Performed bedside report with LESLI Zelaya. Patient's expressed great displeasure with the fact that the patient could have had oxy IR at 0700 has not yet received it, and said that it's scheduled for 7 and she hasn't gotten it yet and she's been in such terrible pain all night. This nurse reiterated once again that PRNs are not scheduled, and are to be available when the patient asks for them. This nurse also re-educated to the patient's that the last available dose of toradol had been given at 2300, and that that was the last dose available but that the doctor had already been contacted for an additional dose. This nurse explained that a delay in care occurred because pharmacy has to verify medications before nursing staff is able to administer them. This nurse also educated about the hospital policies on nursing rounding, call lights being answered, and reasonable expectation of pain levels post-operatively. Administered one time dose of toradol as ordered and transferred care to LESLI Zelaya.
--- NOTE | 2024-03-04 08:11 | P.PN_ITS ---
Documented by User: GAIL Hensley STDPAULINE 03/04/24 09:21 Subjective 2 Subjective: Patient is post-op day #2. Patient has been having a lot of pain in her back. BP has been stable with pain medications. Patient endorses a bilateral, constant, frontal headache that started after getting up for PT yesterday. Patient says it is a sharp pain, had photophobia and phonophobia, denied N/V. Patient says her legs feel stiff and her left toes feel numbness, but is able to move them and feel when palpated. Patient denies chest pain, abdominal pain, and fever. Hbg trended down to 7.3 this morning. Has not passed a bowel movement. Vitals/I&O/Wt Last Vital Signs Temp 98.1 F 03/04/24 07:05 Pulse 78 03/04/24 07:05 Resp 16 03/04/24 07:05 BP 124/71 03/04/24 07:05 Pulse Ox 97 03/04/24 07:05 O2 Del Method Room Air 03/04/24 07:05 03/03/24 03/04/24 03/04/24 22:59 06:59 14:59 Intake Total 1582 / 2822 902.083 / 3724.083 572.917 / 572.917 Output Total 500 / 500 1440 / 1940 Balance 1082 / 2322 -537.917 / 1784.083 572.917 / 572.917 Weight last 48 hrs Weight 216 lb 3 oz Weight 216 lb 4.8 oz Weight 209 lb Weight 175 lb Physical Exam 2 Neck/C-Spine: OTHER: Supple Resp: OTHER: Bilateral, equal breath sounds, clear to ausculation, normal chest wall expansion Cardio: OTHER: Normal rate and rhythm, murmur not noted on exam GI: OTHER: Soft, nondistended, nontender with bowel sounds : OTHER: Catheter noted Back/Pelvis: OTHER: Dressing over incision Extremity: OTHER: No edema or cyanosis. Normal movement in feet. Urinary Catheter Management: Hill: Cath Placed During This Visit: yes Reason for Continuing Indwelling Catheter: Other Urinary Catheter Date of Insertion: 03/02/24 Urinary Catheter Time of Insertion: 14:34 Data 03/04/24 04:51 03/04/24 04:51 A&P Assessment and plan (1) Status post lumbar spinal fusion: Post-op day #2 Continue Oxycodone 20mg q4hrs for pain management Toradol PRN, per ortho instructions Has Dilaudid available as needed, but has not received any yet Ativan .25mg q8 hrs for anxiety Docusate for bowel regimen Continue cefazolin, per ortho instructions Hgb decreased to 7.3, stop fluids and recheck later today Use incentive spirometer Continue Zofran for nausea Headache being monitored as possible beta alessandro withdrawal or CSF leak, will start propanolol 10mg TID, give Tylenol PRN (2) Low BP: BP has been staying stable despite pain meds Stopping fluids due to anemia, will monitor how BP is affected (3) Hyperthyroidism: Continue methimazole Start propanolol 10 mg TID for possible beta alessandro withdrawal headache (4) Chronic back pain: Refer to above (5) Heartburn: Continue sucralfate Plan Full code DVT PPX will be started per ortho instructions Coding Level of Care Code 63559 Diagnoses Status post lumbar spinal fusion Z98.1 Low BP I95.9 Hyperthyroidism E05.90 Chronic back pain M54.9; G89.29 Heartburn R12 Time Spent (min) 26 Documented by User: Abelino Marin MD 03/04/24 09:38 Physical Exam 2 Urinary Catheter Management: Hill: Cath Placed During This Visit: yes Data 03/04/24 04:51 03/04/24 04:51 A&P Assessment and plan (1) Status post lumbar spinal fusion: Post-op day #2 Continue Oxycodone 20mg q4hrs for pain management Toradol PRN, per ortho instructions Has Dilaudid available as needed, but has not needed in ED since yesterday. Ativan .25mg q8 hrs for anxiety. Did have 1 dose yesterday Docusate for bowel regimen Hgb decreased to 7.3, stop fluids and recheck later today. Has acute postoperative blood loss anemia. He is asymptomatic currently. Will transfuse if hemoglobin less than 7, or become significantly symptomatic Use incentive spirometer Continue Zofran for nausea Headache being monitored as possible beta alessandro withdrawal or CSF leak, will start propanolol 10mg TID, give Tylenol PRN (2) Low BP: (3) Hyperthyroidism: Continue methimazole Start propanolol 10 mg TID for possible beta alessandro withdrawal headache. Increase as tolerated by blood pressure (4) Chronic back pain: (5) Heartburn: Attestations 2 Medical Necessity Statement*: As per primary Diagnoses Status post lumbar spinal fusion Z98.1 Low BP I95.9 Hyperthyroidism E05.90 Chronic back pain M54.9; G89.29 Heartburn R12 Time Spent (min) 26
[2024-03-04] MEDS: docusate sodium 100 mg Capsule PO ×2 (08:14→17:48)
[2024-03-04] MEDS: acetaminophen 325 mg Tablet 650 MG PO (08:14)
[2024-03-04] MEDS: propranolol 20 mg Tablet 10 MG PO ×3 (09:07→20:28)
[2024-03-04] MEDS: ondansetron 2 mg/ML SDV 2 mL 4 MG IVP (09:14)
--- NOTE | 2024-03-04 10:03 | P.PN_ITS ---
Subjective 2 Subjective: Patient is postop day 2 from lumbar fusion doing well for the most part pain is relatively controlled. At this point patient sitting up in chair. She is walked with physical therapy today. Vitals/I&O/Wt Last Vital Signs Temp 98.1 F 03/04/24 07:05 Pulse 78 03/04/24 07:05 Resp 16 03/04/24 08:15 BP 124/71 03/04/24 07:05 Pulse Ox 97 03/04/24 08:15 O2 Del Method Room Air 03/04/24 07:05 03/03/24 03/04/24 03/04/24 22:59 06:59 14:59 Intake Total 1582 / 2822 902.083 / 3724.083 932.917 / 932.917 Output Total 500 / 500 1440 / 1940 Balance 1082 / 2322 -537.917 / 1784.083 932.917 / 932.917 Weight last 48 hrs Weight 216 lb 3 oz Weight 216 lb 4.8 oz Weight 209 lb Weight 175 lb Physical Exam 2 Narrative: Patient is 5 5 strength complaining of pain in her low back. Urinary Catheter Management: Hill: Cath Placed During This Visit: yes Reason for Continuing Indwelling Catheter: Other Urinary Catheter Date of Insertion: 03/02/24 Urinary Catheter Time of Insertion: 14:34 Data 03/04/24 04:51 03/04/24 04:51 A&P Assessment and plan (1) Status post lumbar spinal fusion: Patient is postop day #2 lumbar fusion. This point hemoglobin is low we will plan to give her a unit of blood. Attestations 2 Medical Necessity Statement*: Low hemoglobin Coding Level of Care Code Acute Code for Chg Fwd Diagnoses Status post lumbar spinal fusion Z98.1
[2024-03-04 11:52] LABS: Hematocrit 27.8 % (36-47)
[2024-03-04] MEDS: LORazepam 0.5 mg Tablet 0.25 MG PO ×2 (13:34→21:39)
[2024-03-05] VITALS (7 sets, daily range): BP systolic 106–134; BP diastolic 63–77; PULSE 75–87; RESP 16–18; TEMP 36.7–36.8; O2SAT 95–98
[2024-03-05] MEDS: oxyCODONE 5 mg IR Tab/Cap 20 MG PO ×3 (02:46→11:45)
[2024-03-05] MEDS: acetaminophen 325 mg Tablet 650 MG PO (02:52)
[2024-03-05 04:56] LABS: Basophils # 0.1 10^3/uL (0.0-0.1); Basophils % 0.7 %; Eosinophils # 0.2 10^3/uL (0.0-0.8); Eosinophils % 2.5 %; Hematocrit 23.5 % (36-47); Lymphocytes # 1.6 10^3/uL (0.8-4.8); Lymphocytes % 22.3 %; Mean Corpuscular HGB Conc 31.5 g/dL (30-55); Mean Corpuscular Hemoglobin 29.1 pg (27-33); Mean Corpuscular Volume 92.5 fl (85-98); Mean Platelet Volume 10.7 fL (7.4-10.4); Monocytes # 0.6 10^3/uL (0.2-0.9); Monocytes % 8.1 %; Neutrophils # 4.65 10^3/uL (1.8-7.7); Neutrophils % 65.8 %; Nucleated Red Blood Cells % 0 %; Platelet Count 164 10^3/cmm (157-399); Red Blood Count 2.54 10^6/uL (3.85-5.65); Red Cell Distribution Width 13.2 % (12.1-15.1); White Blood Count 7.07 10^3/uL (3.29-11.43)
[2024-03-05 05:23] LABS: Anion Gap 11.6 (5-19); Blood Urea Nitrogen 7 mg/dL (6-20); Carbon Dioxide 28 mmol/L (22-29); Chloride 106 mmol/L (98-107); Creatinine Clr Calc Pharmacy 152.8979; Glomerular Filtration Rate 128.1 mL/min (90-130); Glucose 109 mg/dL (65-115); Osmolality Calculated 293 mOsm/kg (285-295); Potassium 3.6 mmol/L (3.5-5.1); Sodium 142 mmol/L (136-145)
--- NOTE | 2024-03-05 07:50 | P.PN_ITS ---
Documented by User: Lubna Ryan GAIL STDNT 03/05/24 08:33 Subjective 2 Subjective: Patient is post-op day #3. Patient is doing well with pain management schedule, still endorses frontal headache and back pain when meds wear off. Left leg numbness has improved. Patient has been working with PT every day and improvement. Hill was removed and drain is planned to be removed today. No bowel movements, but experiencing gas. Hgb decreased to 7.4 this morning. Vitals/I&O/Wt Last Vital Signs Temp 98.2 F 03/05/24 07:25 Pulse 75 03/05/24 07:25 Resp 16 03/05/24 07:25 BP 134/77 03/05/24 07:25 Pulse Ox 98 03/05/24 07:25 O2 Del Method Room Air 03/05/24 07:25 03/04/24 03/05/24 03/05/24 22:59 06:59 14:59 Intake Total 600 / 1892.917 480 / 2372.917 Output Total 180 / 180 75 / 255 Balance 420 / 1712.917 405 / 2117.917 Weight last 48 hrs Weight 216 lb 8 oz Weight 216 lb 3 oz Physical Exam 2 Neck/C-Spine: OTHER: Supple Resp: OTHER: Bilateral breath sounds, clear to auscultation, normal chest wall expansion Cardio: OTHER: Normal rate and rhythm, slight systolic murmur noted, no gallops or rubs GI: OTHER: Soft, nondistended, nontender with bowel sounds Extremity: OTHER: No edema or cyanosis Urinary Catheter Management: Hill: Cath Placed During This Visit: yes Reason for Continuing Indwelling Catheter: Other Urinary Catheter Date of Insertion: 03/02/24 Urinary Catheter Time of Insertion: 14:34 Data 03/05/24 04:10 03/05/24 04:10 A&P Assessment and plan (1) Status post lumbar spinal fusion: Post-op day #3 Continue Oxycodone 20mg q4hrs for pain management Has Dilaudid available as needed, but has not received any yet Ativan .25mg q8 hrs for anxiety Docusate for bowel regimen Hgb decreased to 7.4, will discuss with ortho regarding possible discharge and pRBCs, will recheck later around 11 Use incentive spirometer Continue Zofran for nausea Headache being monitored as possible beta alessandro withdrawal or CSF leak, did well on propanolol 10mg yesterday, will increase to 30mg TIB today Continue Tylenol PRN for headache (2) Low BP: BP has been staying stable despite pain meds and stopping fluids Increasing propanolol to 30 mg, will monitor how BP responds (3) Chronic back pain: Refer to above (4) Hyperthyroidism: Continue methimazole Increase propanolol 30 mg TID (5) Heartburn: Continue sucralfate Plan Full code DVT PPX will be started per ortho instructions Coding Level of Care Code 81910 Diagnoses Status post lumbar spinal fusion Z98.1 Low BP I95.9 Chronic back pain M54.9; G89.29 Hyperthyroidism E05.90 Heartburn R12 Time Spent (min) 25 Documented by User: Abelino Marin MD 03/05/24 08:45 Subjective 2 Subjective: Patient is post-op day #3. Patient is doing well with pain management schedule, still endorses frontal headache and back pain when meds wear off. Left leg numbness has improved. Patient has been working with PT every day and improvement. Hill was removed and drain is planned to be removed today. No bowel movements, but experiencing gas. Hgb decreased to 7.4 this morning. Denies dizziness or shortness of breath Physical Exam 2 Urinary Catheter Management: Hill: Cath Placed During This Visit: yes Data 03/05/24 04:10 03/05/24 04:10 A&P Assessment and plan (1) Status post lumbar spinal fusion: (2) Low BP: BP has been staying stable despite pain meds and stopping fluids Increasing propanolol to 30 mg p.o. 3 times daily, will monitor how BP responds (3) Chronic back pain: (4) Hyperthyroidism: (5) Heartburn: Attestations 2 Medical Necessity Statement*: As per primary Diagnoses Status post lumbar spinal fusion Z98.1 Low BP I95.9 Chronic back pain M54.9; G89.29 Hyperthyroidism E05.90 Heartburn R12 Time Spent (min) 25
[2024-03-05] MEDS: methIMAzole 5 MG Tablet 2.5 MG PO (09:12)
[2024-03-05] MEDS: propranolol 20 mg Tablet 30 MG PO (09:13)
[2024-03-05] MEDS: docusate sodium 100 mg Capsule PO (09:13)
[2024-03-05 10:19] LABS: Hematocrit 24.6 % (36-47)
--- NOTE | 2024-03-05 10:20 | PM.DCS ---
Discharge Providers Date of Admission: 03/02/24 19:04 Date of Discharge: March 05, 2024 Attending Provider at Admission: Adam Keane DO Attending Provider at Discharge: Adam Keane DO Diagnoses at Discharge Discharge Diagnosis (1) Status post lumbar spinal fusion: Status: Acute (2) Low BP: Status: Acute (3) Chronic back pain: Status: Acute (4) Hyperthyroidism: Status: Acute (5) Heartburn: Status: Acute Reason for Visit Reason for Visit: M48.062 Physical Exam Narrative: Patient is doing better pain is improving. Is able to ambulate. At this point she simulated steps with physical therapy. Hemoglobin is still low. Will evaluate at 11 to determine if she needs blood before she is discharged. Urinary Catheter Management: Hill: Cath Placed During This Visit: yes Reason for Continuing Indwelling Catheter: Other Urinary Catheter Date of Insertion: 03/02/24 Urinary Catheter Time of Insertion: 14:34 Discharge Data Studies Completed and Pending Completed Studies During Hospitalization Category Date Time Status XR lumbar spine 2-3V* [id number] Routine Exams 03/02/24 17:51 Completed Pending at discharge Category Date Time Status PRBC [Leukocyte Reduced RBC] Routine Lab 03/04/24 10:04 Results Type and Screen Routine Lab 03/02/24 11:45 Results Radiology Impressions Lumbar Spine X-Ray 03/02/24 17:51 IMPRESSION: Intraoperative imaging during lumbar fusion procedure. Laboratory Results WBC 7.07 10^3/uL (3.29-11.43) 03/05/24 04:10 RBC 2.54 10^6/uL (3.85-5.65) L 03/05/24 04:10 Hgb 8.20 g/dL (11.27-16.99) L 03/05/24 10:07 Hct 24.6 % (36-47) L 03/05/24 10:07 MCV 92.5 fl (85-98) 03/05/24 04:10 MCH 29.1 pg (27-33) 03/05/24 04:10 MCHC 31.5 g/dL (30-55) 03/05/24 04:10 RDW 13.2 % (12.1-15.1) 03/05/24 04:10 Plt Count 164 10^3/cmm (157-399) 03/05/24 04:10 MPV 10.7 fL (7.4-10.4) H 03/05/24 04:10 Neut % (Auto) 65.8 % 03/05/24 04:10 Lymph % (Auto) 22.3 % 03/05/24 04:10 Warrick % (Auto) 8.1 % 03/05/24 04:10 Eos % (Auto) 2.5 % 03/05/24 04:10 Baso % (Auto) 0.7 % 03/05/24 04:10 Neut # (Auto) 4.65 10^3/uL (1.8-7.7) 03/05/24 04:10 Lymph # (Auto) 1.6 10^3/uL (0.8-4.8) 03/05/24 04:10 Warrick # (Auto) 0.6 10^3/uL (0.2-0.9) 03/05/24 04:10 Eos # (Auto) 0.2 10^3/uL (0.0-0.8) 03/05/24 04:10 Baso # (Auto) 0.1 10^3/uL (0.0-0.1) 03/05/24 04:10 Nucleated RBC % (auto) 0 % 03/05/24 04:10 Nucleated RBCs # 0.0 /100WBC 03/05/24 04:10 Sodium 142 mmol/L (136-145) 03/05/24 04:10 Potassium 3.6 mmol/L (3.5-5.1) 03/05/24 04:10 Chloride 106 mmol/L (98-107) 03/05/24 04:10 Carbon Dioxide 28 mmol/L (22-29) 03/05/24 04:10 Anion Gap 11.6 (5-19) 03/05/24 04:10 BUN 7 mg/dL (6-20) 03/05/24 04:10 Creatinine 0.5 mg/dL (0.5-0.9) 03/05/24 04:10 GFR Calculation 128.1 mL/min (90-130) 03/05/24 04:10 Glucose 109 mg/dL (65-115) 03/05/24 04:10 POC Glucose 151 mg/dL (70-110) H 03/02/24 20:44 Calculated Osmolality 293 mOsm/kg (285-295) 03/05/24 04:10 Calcium 8.0 mg/dL (8.5-10.5) L 03/05/24 04:10 Total Bilirubin 0.2 mg/dL (0.15-1.2) 03/04/24 04:51 AST 16 U/L (0-32) 03/04/24 04:51 ALT 11 U/L (0-33) 03/04/24 04:51 Alkaline Phosphatase 64 U/L (35-105) 03/04/24 04:51 Total Protein 4.9 g/dL (6.6-8.7) L 03/04/24 04:51 Albumin 3.0 g/dL (3.5-5.2) L 03/04/24 04:51 Globulin 1.9 g/dL (1.3-4.6) 03/04/24 04:51 Blood Type B Positive 03/02/24 11:45 Rho(D) Type Rh positive 03/02/24 11:45 Antibody Screen Negative 03/02/24 11:45 Crossmatch See Detail 03/02/24 11:45 Vitals Last Vital Signs Temp 98.2 F 03/05/24 07:25 Pulse 75 03/05/24 07:25 Resp 16 03/05/24 07:25 BP 134/77 03/05/24 07:25 Pulse Ox 98 03/05/24 07:25 O2 Del Method Room Air 03/05/24 07:25 Discharge Plan Discharge Prescriptions: New oxycodone-acetaminophen 10-325 mg tablet 1 - 2 tab PO Q4H PRN (Reason: pain) 7 Days Qty: 42 0RF Continued propranolol 160 mg capsule,extended release 24 hr 160 mg PO DAILY methimazole 5 mg tablet 2.5 mg PO EVERY OTHER DAY (DME) Bone Growth Stimulator See Rx Instructions .Route .MEDSUPPLY Qty: 1 0RF Rx Instructions: As directed Unisom SleepGels 50 mg Capsule See Rx Instructions .ROUTE .COMPLEX PRN (Reason: Sleep) Rx Instructions: unknown dose- patient states she takes 4 tabs at bedtime for sleep sucralfate 1 gram tablet 1 g PO BID PRN (Reason: Heartburn) Discontinued oxycodone 10 mg tablet 10 mg PO TID PRN (Reason: Pain) Discharge Orders: Discharge Order (Routine); Ordered 03/05/24 Ordered By: Adam Keane Other Ambulatory Orders: DME: Walker (Order) Location: None Selected Ordered By: Adam Keane Referrals: Adam Keane DO [Physician] - 03/17/24 3:15 pm Discharge Diet: Advance as tolerated Discharge Activity: Limit activity as instructed Patient Instructions: Acute Wound Care (DC), Opioid Safety, Post Anesthesia Care Activity Restrictions/Additional Instructions: Thank you for [facility] for your care! The following is a list of instructions, from your provider, to follow upon your discharge to ensure you have the optimal recovery from your recent injury orsurgery. Follow-up care is a robbins part of your treatment and safety. Be sure to make and go to all appointments, and call your doctor if you are having problems. If you do not already have a follow-up appointment made, call Dr. Keane office in the next 1-3 days to make follow up appointment for 1 weeks at [phone]. It is also a good idea to know your test results and keep a list of the medicines you take. Medications will be prescribed for you at your provider's discretion. These medications are to be used as instructed; if they are taken more often that prescribed they will not be refilled early and in most cases will not be refilled at all. > When a refill is needed,you should contact lucina celis 2-3 business days before your prescription runs out. Medications will NOT be refilled by reimbursement consultant providers after hours! > Many pain medications contain Tylenol (Acetaminophen). Do not consume more than 4,000 mg of Tylenol per day in total with any combination ofmedications. > Pain medications can cause constipation. Please use an over the counter stool softener as directed, while taking pain medications. Consulty our local pharmacist with questions or recommendations on stool softeners. If constipation persists, contact our office or your primary care provider. > While under our care,you are not to receive pain medications or other controlled substances from any other provider unless our office is notified and approves. Any attempts to do so will result in refusal to prescribe any further pain medications and possible dismissal from our practice. ? Keep dressing on until seen in clinic in 1 week. ? Showering is permitted, however we ask that you do not take a bath, sit in a whirlpool / Jacuzzi, or go swimming for 1 month. For only the first 2 days after surgery, lt wilt be necessary for you to cover your wound/dressing with plastic and tape to keep it dry. ? Walking is essential for the healing process after surgery. We would like you to slowly advance your walking. This should be done on relatively flat clear ground (inside or out) or can be done on a treadmill. Remember this goal does not have to happen all at once, slowly increase your distance and duration. This can be broken into more more than one walk per day as tolerated. Patients who walk as directed after surgery rarely require Physical Therapy. In the unlikely event this issue arises your provider will direct hospital staff to make the appropriate arrangements. ? No lifting over 5 pounds {a gallon of milk) or bending/twisting until further notice. Each of these activities places an unnecessary amount of stress onto the body and can impede the delicate healing process. > Instead of bending at the waist, keep your back straight and bend at the knees. > Instead of twisting your torso, keep your back straight and turn your entire body with your feet. ? You may sleep in any position which makes you comfortable. Many patients find comfort sleeping in a reclining chair. It is not abnormal to have difficulty sleeping for the first several weeks following your surgery. We recommend trying Benadry! or Tylenol PM as directed to help with your sleeping difficulties. Both medications are over the counter and available withoutprescription. ? NO SMOKING!!! Smoking dramatically increases the probability of developing postoperative wound infections. ? Common complaints after lumbar and/or thoracic spine surgery include, but are not limited to: numbness and/or tingling in the legs, pain around the incision and surrounding tissues, muscle spasms, or stiffness of the middle to low back. Contact our office if these symptoms persist or if an acute change occurs. ? No driving for the first 3-5days, and not while taking narcotics [] until seen at your follow-up appointment and cleared. There are no restrictions for riding on short trips, however if you take a longer trip, arrangements should be made to make regular stops to get out of the vehicle and stretch . ? Swelling is an unfortunate event that will take place with any surgery and is the primary source of your postoperative discomfort. While walking and regular approved activities helps control inflammation, there are additional steps you can take to minimizeswelling. > Place ice over the surgical site and surrounding tissue for twenty minutes, followed by applying a low/medium heat (heating pad) for an additional twenty minutes every 1-2 hours as needed for painrelief. > You may use of over the counter anti-inflammatory medications (Ibuprofen, Motrin, Aleve, Advil, etc) as directed on the package label. These types of medicines wm significantly reduce the amount of discomfort you experience after surgery from swelling. It should be noted that if you have and allergy to any of these medications, or a history of ulcers or kidney disease you should consult you primary care provider prior to starting these medications. Discharge Attestations Time Spent in Discharge Care*: less than 30 min Quality Metrics Clinical Quality Measures [ No reported AMI, CVA or VTE this stay] Coding Level of Care Code Acute Code for Chg Fwd Diagnoses Status post lumbar spinal fusion Z98.1 Low BP I95.9 Chronic back pain M54.9; G89.29 Hyperthyroidism E05.90 Heartburn R12
--- NOTE | 2024-03-05 13:26 | PC.NURSE ---
Discussed discharge restictions, activities, new medications, discontinued medications and follow up appointment. Also discussed signs and symptoms of infection. Changed dressing before discharge and sent patients home medication of propanolol. Patient and spouce verbalized understanding.
== END 2024-03-05 13:00 | disposition home or self-care (01) ==
LOC: MEDSURG 19:05
PROVIDERS: Internal Medicine; Admitting Provider Orthopaedic Surgery; Visit Provider Orthopaedic Surgery
PROC: (CPT 20930; principal; 2024-03-02 12:50)
PROC: (CPT 22612; 2024-03-02 12:50)
PROC: (CPT 20930; 2024-03-02 12:50)
DX: M48.062 Spinal stenosis, lumbar region with neurogenic claudication (principal); R12 Heartburn; E05.90 Thyrotoxicosis, unspecified without thyrotoxic crisis or storm; M54.9 Dorsalgia, unspecified; G89.29 Other chronic pain; I95.9 Hypotension, unspecified; E03.9 Hypothyroidism, unspecified; Z87.891 Personal history of nicotine dependence
CPT/HCPCS: 20930; 20936; 20939; 22633; 22634; 22842; 22853 ×2; 61783; 63052; 63053; 63688; 36415; 36416; 51702; 72100; 76000; 80048; 80053; 82962; 85014; 85018; 85025; 86850; 86900; 86920; 97110; 97116; 97161; 97530; C1713; C9359; G0378; J0131; J0690; J1100; J1170; J1644; J1885; J2250; J2405; J2704; J3010; J3490; J7030; J7050; J7120; P9045

== ENCOUNTER → 2024-03-17 16:07 | Outpatient (BNVA) | payer MEDICAID, SELFPAY | PROVIDERS: Visit Provider Orthopaedic Surgery | DX: M48.062 Spinal stenosis, lumbar region with neurogenic claudication (principal) | CPT/HCPCS: 36415; 85025 ==

== ENCOUNTER → 2024-04-16 10:44 | Outpatient (BNVA) | payer MEDICAID, SELFPAY | PROVIDERS: Visit Provider Orthopaedic Surgery | DX: Z98.1 Arthrodesis status (principal) | CPT/HCPCS: 72100 ==

== ENCOUNTER 2024-04-16 11:03 | Outpatient (CLI) | payer MEDICAID, SELFPAY ==
[2024-04-16 11:38] LABS: Basophils % 0.7 %; Eosinophils # 0.4 10^3/uL (0.0-0.8); Eosinophils % 9.1 %; Hematocrit 34.7 % (36-47); Lymphocytes # 1.1 10^3/uL (0.8-4.8); Lymphocytes % 24.9 %; Mean Corpuscular HGB Conc 30.8 g/dL (30-55); Mean Corpuscular Hemoglobin 28.3 pg (27-33); Mean Corpuscular Volume 91.8 fl (85-98); Mean Platelet Volume 9.9 fL (7.4-10.4); Monocytes # 0.4 10^3/uL (0.2-0.9); Monocytes % 9.1 %; Neutrophils # 2.45 10^3/uL (1.8-7.7); Nucleated Red Blood Cells % 0 %; Platelet Count 291 10^3/cmm (157-399); Red Blood Count 3.78 10^6/uL (3.85-5.65); Red Cell Distribution Width 12.4 % (12.1-15.1); White Blood Count 4.38 10^3/uL (3.29-11.43)
[2024-04-16 11:58] LABS: Estmated Average Glucose 94; Hemoglobin A1C 4.9 % (4.0-6.0)
[2024-04-16 12:08] LABS: Alanine Aminotransferase 52 U/L (0-33); Albumin Level 4.3 g/dL (3.5-5.2); Alkaline Phosphatase 224 U/L (35-105); Anion Gap 15.3 (5-19); Aspartate Amino Transferase 38 U/L (0-32); Blood Urea Nitrogen 10 mg/dL (6-20); Calcium 8.6 mg/dL (8.5-10.5); Carbon Dioxide 27 mmol/L (22-29); Chloride 99 mmol/L (98-107); Chol HDL Ratio 5.03 mg/dL (0.0-4.40); Cholesterol 201 mg/dL (0-200); Globulin 3.5 g/dL (1.3-4.6); Glomerular Filtration Rate 103.8 mL/min (90-130); Glucose 98 mg/dL (65-115); HDL Cholesterol 40 mg/dL (60-100); LDL Cholesterol Calculated 123 mg/dL (50-129); LDL HDL Ratio 3.08 RATIO (0.00-3.22); Osmolality Calculated 283 mOsm/kg (285-295); Potassium 4.3 mmol/L (3.5-5.1); Sodium 137 mmol/L (136-145); T3 Free 2.8 PG/ML (2.0-4.4); Thyroid Stimulating Hormone 1.24 uIU/mL (0.27-4.20); Total Bilirubin 0.2 mg/dL (0.15-1.2); Total Protein 7.8 g/dL (6.6-8.7); Triglycerides 190 mg/dL (0-150)
[2024-04-18 08:11] LABS: Thyroid Peroxidase Antobodies 620 IU/mL (<9)
== END 2024-04-16 11:04 | disposition home or self-care (01) ==
LOC: LAB 11:05
DX: E05.90 Thyrotoxicosis, unspecified without thyrotoxic crisis or storm (principal); M96.1 Postlaminectomy syndrome, not elsewhere classified; E05.00 Thyrotoxicosis with diffuse goiter without thyrotoxic crisis or storm; L03.90 Cellulitis, unspecified
CPT/HCPCS: 36415; 80053; 80061; 83036; 84439; 84443; 84481; 85025; 86376

== ENCOUNTER → 2024-05-28 10:56 | Outpatient (BNVA) | payer MEDICAID, SELFPAY | PROVIDERS: Visit Provider Orthopaedic Surgery | DX: Z98.1 Arthrodesis status (principal) | CPT/HCPCS: 72100 ==

== ENCOUNTER 2024-06-18 10:34 | Outpatient (RCR) | payer MEDICAID, SELFPAY | END 2024-07-10 23:59 | disposition home or self-care (01) | LOC: SPT 10:34 | PROVIDERS: PCP Family Medicine; Visit Provider Orthopaedic Surgery | DX: M54.50 Low back pain, unspecified (principal); G89.29 Other chronic pain | CPT/HCPCS: 97110; 97161 ==

== ENCOUNTER 2024-07-11 06:00 | Outpatient (RCR) | payer MEDICAID, SELFPAY | END 2024-08-07 23:59 | disposition home or self-care (01) | LOC: SPT 06:00 | PROVIDERS: PCP Family Medicine; Visit Provider Orthopaedic Surgery | DX: M54.50 Low back pain, unspecified (principal); G89.29 Other chronic pain | CPT/HCPCS: 97110 ==

== ENCOUNTER 2024-08-08 06:30 | Outpatient (RCR) | payer MEDICAID, SELFPAY | END 2024-09-07 23:59 | disposition home or self-care (01) | LOC: SPT 06:30 | PROVIDERS: PCP Family Medicine; Visit Provider Orthopaedic Surgery | DX: M54.50 Low back pain, unspecified (principal); G89.29 Other chronic pain | CPT/HCPCS: 97110 ==

== ENCOUNTER → 2024-08-27 10:15 | Outpatient (BNVA) | payer MEDICAID, SELFPAY | PROVIDERS: PCP Family Medicine; Visit Provider Orthopaedic Surgery | DX: Z98.1 Arthrodesis status (principal) | CPT/HCPCS: 72100 ==

== ENCOUNTER 2024-09-08 06:00 | Outpatient (RCR) | payer MEDICAID, SELFPAY | END 2024-10-07 23:59 | disposition home or self-care (01) | LOC: SPT 06:00 | PROVIDERS: PCP Family Medicine; Visit Provider Orthopaedic Surgery | DX: M54.50 Low back pain, unspecified (principal); G89.29 Other chronic pain | CPT/HCPCS: 97110 ==

== ENCOUNTER 2024-10-08 05:00 | Outpatient (RCR) | payer MEDICAID, SELFPAY | END 2024-10-26 12:19 | disposition home or self-care (01) | LOC: SPT 05:00 | PROVIDERS: PCP Family Medicine; Visit Provider Orthopaedic Surgery | DX: M54.50 Low back pain, unspecified (principal); G89.29 Other chronic pain | CPT/HCPCS: 97110 ==

== ENCOUNTER → 2024-11-05 11:22 | Outpatient (BNVA) | payer MEDICAID, SELFPAY | PROVIDERS: PCP Family Medicine; Visit Provider Family Medicine | DX: Z13.6 Encounter for screening for cardiovascular disorders (principal); E05.90 Thyrotoxicosis, unspecified without thyrotoxic crisis or storm; R12 Heartburn; J20.8 Acute bronchitis due to other specified organisms; B96.89 Other specified bacterial agents as the cause of diseases classified elsewhere | CPT/HCPCS: 80053; 80061; 83036; 84439; 84443; 84480; 85025 ==

== ENCOUNTER → 2025-02-18 10:33 | Outpatient (BNVA) | payer MEDICAID, SELFPAY | PROVIDERS: PCP Family Medicine; Visit Provider Orthopaedic Surgery | DX: M25.551 Pain in right hip (principal); M25.552 Pain in left hip; Z98.1 Arthrodesis status | CPT/HCPCS: 72100; 73523 ==

== ENCOUNTER → 2025-03-26 08:01 | Outpatient (BNVA) | payer MEDICAID, SELFPAY | PROVIDERS: PCP Family Medicine; Visit Provider Student in an Organized Health Care Education/Training Program | DX: M16.12 Unilateral primary osteoarthritis, left hip (principal) | CPT/HCPCS: 77002 ==

== ENCOUNTER 2025-05-07 11:15 | Outpatient (CLI) | payer MEDICAID, SELFPAY ==
--- NOTE | 2025-05-07 | MM_ITS ---
WS: [id number] BILATERAL 3D TOMOSYNTHESIS DIGITAL SCREENING MAMMOGRAPHY WITH CAD CLINICAL INFORMATION: ANNUAL SCREENING HISTORY: Screening mammogram. No current complaints. COMPARISON: None. TECHNIQUE: Bilateral CC and MLO views. FINDINGS: Scattered fibroglandular densities bilaterally. No suspicious focal mass, asymmetry, calcifications, or architectural distortion. No evidence of malignancy. MM/MM scr BI tomosynthesis [id number] IMPRESSION: DENSITY: There are scattered areas of fibroglandular density. BI-RADS: 1 - Negative. FOLLOW UP: 1 Year Follow-up Recommend return to annual screening mammography.
== END 2025-05-07 11:16 | disposition home or self-care (01) ==
LOC: RAD 11:15
PROVIDERS: PCP Family Medicine; Visit Provider Family Medicine
DX: Z12.31 Encounter for screening mammogram for malignant neoplasm of breast (principal); R92.323 Mammographic fibroglandular density, bilateral breasts
CPT/HCPCS: 77063; 77067

== ENCOUNTER → 2025-06-08 12:43 | Outpatient (BNVA) | payer MEDICAID, SELFPAY | PROVIDERS: PCP Family Medicine; Visit Provider Family Medicine | DX: Z01.818 Encounter for other preprocedural examination (principal); M16.12 Unilateral primary osteoarthritis, left hip | CPT/HCPCS: 80053; 81000; 85025 ==